=== PATIENT | female | born 2000 | race Hispanic/Latino ===

== ENCOUNTER 2018-10-18 10:00 | Emergency (ER) | payer MEDICAID, OTHER ==
[2018-10-18 10:06] VITALS: BP 119/75; PULSE 85; RESP 16; TEMP 99.2; O2SAT 97
--- NOTE | 2018-10-18 10:48 | C.PDOC ---
History Of Present Illness 18 y/o female,with no significant PMhx, presents to the ER complaining of lump to left lateral breast which has been present for " a while." Patient states that the pain increases when she has her period. Patient reports that her LMP was in the beginning of August. She notes that her period is late and she will follow up with PCP regarding this issue.Denies having erythema and swelling to the area, nipple discharge, fever, and chills. Chief Complaint (Nursing): Breast Problem History Per: Patient History/Exam Limitations: no limitations Onset/Duration Of Symptoms: Days Current Symptoms Are (Timing): Still Present Severity: Moderate Past Medical History Reviewed: Historical Data, Nursing Documentation, Vital Signs Vital Signs: Last Vital Signs Temp 99.2 F 10/18/18 10:02 Pulse 85 10/18/18 10:02 Resp 16 10/18/18 10:02 BP 119/75 10/18/18 10:02 Pulse Ox 97 10/18/18 10:02 - Medical History PMH: No Chronic Diseases Surgical History: No Surg Hx Family History: States: No Known Family Hx - Social History Hx Alcohol Use: Yes Hx Substance Use: No - Immunization History Hx Tetanus Toxoid Vaccination: No Hx Influenza Vaccination: No Hx Pneumococcal Vaccination: No Review Of Systems Except As Marked, All Systems Reviewed And Found Negative. Constitutional: Negative for: Fever, Chills Skin: Positive for: Other (lump to left breast) Physical Exam - Physical Exam Appears: Non-toxic, No Acute Distress Skin: Normal Color, Warm, Dry Head: Atraumatic, Normacephalic Eye(s): bilateral: Normal Inspection Nose: Normal Oral Mucosa: Moist Neck: Supple Lymphatic: Other (no axillary or supraclavicular nodes) Chest: Symmetrical, Tenderness (mild tenderness to left breast), Other (mild thickening to RUQ and RLQ of left breast, similar thickening to right breast, no nipple discharge, no skin changes, no discreet nodule palpated) Cardiovascular: Rhythm Regular Respiratory: Normal Breath Sounds, No Rales, No Rhonchi, No Wheezing Neurological/Psych: Oriented x3, Normal Speech ED Course And Treatment O2 Sat by Pulse Oximetry: 97 (RA) Pulse Ox Interpretation: Normal Medical Decision Making Medical Decision Making: Patient has been discharged and instructed to follow up with PMD. Disposition Counseled Patient/Family Regarding: Studies Performed, Diagnosis, Need For Followup - Disposition Referrals: Shaik Rankin MD [Staff Provider] - Disposition: HOME/ ROUTINE Disposition Time: 10:47 Condition: GOOD Additional Instructions: DESIREE PERKINS, thank you for letting us take care of you today. Your provider was Jaylin Anderson MD and you were treated for LT BREAST PAIN. The emergency medical care you received today was directed at your acute symptoms. If you were prescribed any medication, please fill it and take as directed. It may take several days for your symptoms to resolve. Return to the Emergency Department if your symptoms worsen, do not improve, or if you have any other problems. Please contact your doctor for a follow up appointment in 1-2 days. Bring any paperwork you were given at discharge with you along with any medications you are taking to your follow up visit. Our treatment cannot replace ongoing medical care by a primary care provider outside of the emergency department. Thank you for allowing the [facility] team to be part of your care today. Instructions: Common Breast Problems Forms: Pull (Hebrew) - POA Present On Arrival: None - Clinical Impression Clinical Impression: Pain of breast - Scribe Statement The provider has reviewed the documentation as recorded by the [facility] Carrillo Provider Attestation: All medical record entries made by the Scribe were at my direction and personally dictated by me. I have reviewed the chart and agree that the record accurately reflects my personal performance of the history, physical exam, medical decision making, and the department course for this patient. I have also personally directed, reviewed, and agree with the discharge instructions and disposition.
== END 2018-10-18 10:50 | disposition home or self-care (01) ==
LOC: C.ER 10:00
DX: N64.4 Mastodynia (principal)